=== PATIENT | female | born 1985 | race Caucasian/White ===

== ENCOUNTER 2017-06-04 18:22 | Emergency (ER) | payer MEDICAID ==
[~2017-06-04] VITALS: Ht 152.4 cm; Wt 77.5 kg
[2017-06-04 18:49] VITALS: Ht 152.4 cm; Wt 77.5 kg
[2017-06-04] MEDS ORDERED: IBUP-1542 PO (21:13)
[2017-06-04] MEDS ORDERED: SODI126M NASAL (21:13)
--- NOTE | 2017-06-04 21:28 | ERD ---
ER Documentation Chief Complaint Chief Complaint cold s/s HPI 32-year-old female complaining of vomiting, fever, body ache. Patient stated that she start vomiting 5 days ago, the vomiting resolved the next day. She started had a fever and body ache 4 days ago. She did not check her temperature at home. Reports feeling sore throat, the sore throat felt better today. She took ibuprofen at home for pain and fever. Last dose was yesterday. Denies abdominal pain. Denies vomiting or diarrhea currently. Denies shortness of breath. Patient also reports painful lesions around her nostril. States that she always gets them once she has a cold. She is using a cream that she purchased from [employer]. ROS All systems reviewed and are negative except as per history of present illness. Medications Home Meds Active Scripts Sodium Chloride (Saline Nasal Mist) 126 Ml Mist, 2 SPRAY NASAL Q2H Y for NASAL CONGESTION, #1 BOTTLE Prov:JOE OLIVARES. SET UP OPERATOR TOOL 06/04/17 Ibuprofen* (Motrin*) 600 Mg Tab, 600 MG PO Q6H Y for PAIN AND OR ELEVATED TEMP, #30 TAB Prov:JOE OLIVARES. SET UP OPERATOR TOOL 06/04/17 PMhx/Soc Medical and Surgical Hx: pt denies Medical Hx, pt denies Surgical Hx Hx Alcohol Use: No Hx Substance Use: No Hx Tobacco Use: No Smoking Status: Never smoker Physical Exam Vitals Vital Signs Date Time Temp Pulse Resp B/P Pulse Ox O2 Delivery O2 Flow Rate FiO2 06/04/17 18:49 99.0 71 16 127/70 99 Physical Exam General: Well-developed, well-nourished, conscious and coherent, in no distress Skin: Warm and dry without rash, good texture and turgor Head: Normocephalic without evidence of trauma Eyes: Sclera and conjunctivae normal; pupils equal, round, and reactive to light; extraocular movements are intact Ears: Canals are patent. Tympanic membranes are clear Nose/Face: Nasal mucosa erythematous and swollen. Vesicular lesions on erythematous base noted under the nostrils. Mouth/throat: Mucous membranes are moist. Posterior pharynx clear without erythema or exudates Neck: Supple without meningismus or adenopathy. Carotids are equal. Trachea midline. No bruits or JVD Chest: Normal AP diameter. Good expansion without retractions. Nontender. Lungs are clear to auscultate bilaterally with good tidal volume Heart: Regular rate and rhythm. No murmur, rub, or gallops heard Abdomen: Soft and nontender without masses, guarding, or rebound. Bowel sounds are active. No hepatosplenomegaly Extremities: Full range of motion. Good strength bilaterally. No clubbing, cyanosis, or edema. Peripheral pulses are intact. Sensation intact Neuro: Alert and oriented 4, GCS 15. Cranial nerves grossly intact. Motor and sensory exams nonfocal. Moves all extremities. Speech clear. Gait normal Procedures/MDM Patient is afebrile, in no respiratory distress. Lungs are clear to auscultate. I doubt that patient has pneumonia or bronchitis. Patient does not have any abdominal tenderness on palpation. I doubt acute appendicitis, cholecystitis, bowel obstruction or other acute abdomen. Patient's symptoms is consistent with that of viral syndrome. Patient does not have any active vomiting, is able to maintain by mouth fluid intake. Patient does not show any sign of dehydration. Patient appears well, stable for discharge and outpatient management. Medical decision making shared with patient and family. Education provided to patient and family. Patient and family expressed understanding of the plan. Medications on discharge: Ibuprofen, saline nasal spray. Follow-up: Primary care provider in 2-3 days or return to ED if worse. Disclaimer: Inadvertent spelling and grammatical errors are likely due to EHR/ dictation software use and do not reflect on the overall quality of patient care. Also, please note that the electronic time recorded on this note does not necessarily reflect the actual time of the patient encounter. Departure Diagnosis: Primary Impression: Viral syndrome Additional Impression: Cold sore Condition: Stable Patient Instructions: Adult Self-Care for Colds, Herpes Labialis, Hsv: Type I [facility]: [facility] Usted se prasad hecho un examen mdico de control que le indica que no est en tanisha condicin que requiera tratamiento urgente en el Departamento de Emergencia. Un estudio ms profundo y el tratamiento de zavaleta condicin pueden esperar sin ningn riesgo hasta que usted sea atendida/o en el consultorio de zavaleta mdico o tanisha cl zak. Es responsabilidad suya arreglar tanisha davie para el seguimiento del juan daniel. MANEJO DE CONDICIONES NO URGENTES EN EL FUTURO 1) Si usted tiene un mdico de atencin primaria: Usted debera llamar a zavaleta mdico de atencin primaria antes de venir al departamento de emergencia. Despus de las horas de consultorio, zavaleta doctor o zavaleta asociado/a est disponible por telfono. El mdico o enfermero de siva en el servicio telefnico puede asesorarle por primo medio para atender el problema, o juan daniel contrario se puede programar tanisha davie. 2) Si usted no tiene un mdico de atencin primaria: Llame al mdico o clnica de referencia que aparece abajo mary las horas de consultorio para hacer tanisha davie para que le vean. CLINICAS: [facility] [phone] [facility] [phone] [facility]. [facility] [phone] [facility] [facility] [phone] [facility] [place] [phone] [facility]. [phone] [address] Additional Instructions: Llame al doctor MAANA y lisa tanisha DAVIE PARA DENTRO DE 2-3 PEREZ.Dgale a la secretaria que nosotros le instruimos hacer esta davie.Avise o llame si zavaleta condicin se empeora antes de la davie. Regresa aqui si peor o no mejor. JOE OLIVARES. ALEJANDRO Jun 04, 2017 21:28
[2017-06-04 22:00] VITALS: BP 125/77; PULSE 64; RESP 18; TEMP 98.1
== END 2017-06-04 22:00 | disposition home or self-care (01) ==
LOC: FTE 18:22
DX: B34.9 Viral infection, unspecified (principal); B00.1 Herpesviral vesicular dermatitis
CPT/HCPCS: 99283

== ENCOUNTER 2018-05-08 10:31 | Outpatient (CLI) | END 2018-05-08 14:43 | disposition home or self-care (01) ==

== ENCOUNTER 2018-05-23 19:50 | Inpatient (IN) | END 2018-05-26 13:35 | disposition home or self-care (01) | DRG 807 ==